=== PATIENT | male | born 1955 | race American Indian/Alaskan Native ===

== ENCOUNTER 2017-04-14 22:47 | Emergency (ER) | payer OTHER ==
[2017-04-14 22:53] VITALS: BP 138/93
--- NOTE | 2017-04-14 23:51 | XRay Report ---
FINAL REPORT PROCEDURE: XR TIBIA FIBULA 2V RT TECHNIQUE: RIGHT tibia and fibula radiographs, AP and lateral views. CPT 45912 History Right calf pain. COMPARISON: No prior studies are available for comparison. FINDINGS: Fracture (s) and/or Dislocation(s): None . Joint space(s): There is mild tricompartmental narrowing. Patellofemoral osteophytes. Calcaneal spur. Soft tissues: Normal . Bone mineralization: Normal . Foreign bodies: None . IMPRESSION: Mild degenerative changes without radiographic evidence of displaced fracture.
[2017-04-15] MEDS ORDERED: TYLENOL PO ONE (02:05)
--- NOTE | 2017-04-15 02:31 | Emergency Department Report ---
ED Lower Extremity HPI - General Chief Complaint: Extremity Injury, Lower Stated Complaint: PAIN RT LEG Time Seen by Provider: 04/15/17 01:43 Source: patient Mode of arrival: Ambulatory Limitations: No Limitations - History of Present Illness Initial Comments: 61-year-old male past medical history hypertension, diabetes presents with complaint of right calf pain. Patient states a few hours ago he was walking backward and stumbled off of a street curb. States that he felt immediate pain in the middle of his right calf as he hyperextended his right ankle/foot. Patient states he had difficulty walking afterward. Brought to the ER by his . Pain currently 0 out of 10 but patient states that when he tries to stand up and walk pain is severe in his right calf. Denies any other injuries denies any head injury denies any neck pain. Patient is fully lucid awake alert and oriented 3 did not sustain any lacerations or injuries to any other extremities chest abdomen or back during fall. Patient states that pain is activated by palpation of his right calf or walking. MD Complaint: leg injury (right calf) -: This evening Injury: Leg: Right (right calf) Type of Injury: hyperextension Place: street/outdoors Severity: moderate Severity scale (0 -10): 7 Improves With: cold therapy, immobilization Worsens With: weight bearing, movement, palpation Context: other (stumbled backward off of curb) Associated Symptoms: snap/pop sensation, swelling, able to partially bear weight - Related Data Previous Rx's Medication Instructions Recorded Last Taken Type Acetaminophen/Codeine [Tylenol 1 tab PO Q6H PRN #12 tab 04/15/17 Unknown Rx /Codeine # 3 tab] Ibuprofen [Motrin] 600 mg PO Q8H PRN #30 tablet 04/15/17 Unknown Rx Allergies Allergy/AdvReac Type Severity Reaction Status Date / Time No Known Allergies Allergy Unverified 04/14/17 22:53 ED Review of Systems ROS: Stated complaint: PAIN RT LEG Other details as noted in HPI Constitutional: denies: chills, fever Eyes: denies: eye pain, eye discharge, vision change ENT: denies: ear pain, throat pain Respiratory: denies: cough, shortness of breath, wheezing Cardiovascular: denies: chest pain, palpitations Endocrine: no symptoms reported Gastrointestinal: denies: abdominal pain, nausea, diarrhea Genitourinary: denies: urgency, dysuria Musculoskeletal: as per HPI (right calf pain for the last 4 hours). denies: back pain, joint swelling, arthralgia Skin: denies: rash, lesions Neurological: denies: headache, weakness, paresthesias Psychiatric: denies: anxiety, depression Hematological/Lymphatic: denies: easy bleeding, easy bruising ED Past Medical Hx - Past Medical History Previous Medical History?: Yes Hx Hypertension: Yes Hx Diabetes: Yes - Surgical History Past Surgical History?: No - Social History Smoking Status: Former Smoker Substance Use Type: None - Medications Home Medications: Home Medications Medication Instructions Recorded Confirmed Last Taken Type Acetaminophen/Codeine [Tylenol 1 tab PO Q6H PRN #12 tab 04/15/17 Unknown Rx /Codeine # 3 tab] Ibuprofen [Motrin] 600 mg PO Q8H PRN #30 tablet 04/15/17 Unknown Rx ED Physical Exam - General Limitations: No Limitations General appearance: alert, in no apparent distress - Head Head exam: Present: atraumatic, normocephalic - Eye Eye exam: Present: normal appearance, PERRL, EOMI - ENT ENT exam: Present: mucous membranes moist - Neck Neck exam: Present: normal inspection - Respiratory Respiratory exam: Present: normal lung sounds bilaterally. Absent: respiratory distress - Cardiovascular Cardiovascular Exam: Present: regular rate, normal rhythm. Absent: systolic murmur, diastolic murmur, rubs, gallop - GI/Abdominal GI/Abdominal exam: Present: soft, normal bowel sounds - Rectal Rectal exam: Present: deferred - Extremities Exam Extremities exam: Present: normal inspection - Expanded Lower Extremity Exam Right Hip exam: Present: normal inspection, full ROM Upper Leg exam: Present: normal inspection, full ROM Knee exam: Present: normal inspection, full ROM (right knee flexion and extension intact) Lower Leg exam: Present: normal inspection, tenderness (tenderness overlying the right calf with some associated swelling) Ankle exam: Present: normal inspection, full ROM Foot/Toe exam: Present: normal inspection, full ROM Neuro vascular tendon exam: Present: no vascular compromise (distal dorsalis pedis and posterior tibial pulses strong to palpation) Gait: Positive: antalgic 1 - Pain on palpation of this region - Back Exam Back exam: Present: normal inspection - Neurological Exam Neurological exam: Present: alert, oriented X3, CN II-XII intact, abnormal gait (antalgic gait secondary to pain) - Psychiatric Psychiatric exam: Present: normal affect, normal mood - Skin Skin exam: Present: warm, dry, intact, normal color. Absent: rash ED Course Vital Signs 04/14/17 04/14/17 04/15/17 22:50 22:53 02:29 Temperature 98.0 F 98 F Pulse Rate 105 H 101 H Respiratory 18 18 18 Rate Blood Pressure 138/93 138/93 O2 Sat by Pulse 98 98 Oximetry ED Lower Extremity MDM - Medical Decision Making A/P: Right calf muscle strain, possible calf muscle tear 1-pt given crutches, placed in posterior splint of right lower extremity. Nonweightbearing for a minimum of 4-6 weeks or until cleared by orthopedics 2-I emphasized the importance of follow-up with orthopedics to the patient. Patient stated that he would follow-up as soon as possible to mitigate any long- term injury or dysfunction to right lower extremity I explained to patient that I am concerned he may have complete or partial right calf muscle tear. Patient stated he understood my clinical concern, conversation witnessed by patient's at bedside and crepe maker Ms Mazariegos 3-Motrin when necessary, codeiene short course when necessary 4- case discussed with Dr. Tang before discharge Critical care attestation.: If time is entered above; I have spent that time in minutes in the direct care of this critically ill patient, excluding procedure time. ED Disposition Clinical Impression: Right calf pain Strain of calf muscle Qualifiers: Encounter type: initial encounter Laterality: right Qualified Code(s): S86.811A - Strain of other muscle(s) and tendon(s) at lower leg level, right leg , initial encounter Disposition: TO HOME OR SELFCARE Is pt being admited?: No Does the pt Need Aspirin: No Condition: Stable Instructions: Crutch Instructions (ED), Muscle Strain (ED), RICE Therapy (ED) Additional Instructions: pt advised to follow up with orthopedics SE[facility] as he may have sustained right calf muscle or tendon partial or complete tear Prescriptions: Acetaminophen/Codeine [Tylenol /Codeine # 3 tab] 1 tab PO Q6H PRN #12 tab PRN Reason: Pain Ibuprofen [Motrin] 600 mg PO Q8H PRN #30 tablet PRN Reason: Pain Referrals: PETER AMADOR MD [Staff Physician] - 3-5 Days [facility] [Provider Group] - 3-5 Days Forms: Work/School Release Form(ED) Time of Disposition: 02:31
== END 2017-04-15 02:59 | disposition home or self-care (01) ==
LOC: ED 22:47
DX: S86.811A Strain of other muscle(s) and tendon(s) at lower leg level, right leg, initial encounter (principal); I10 Essential (primary) hypertension; E11.9 Type 2 diabetes mellitus without complications; Z87.891 Personal history of nicotine dependence; W18.49XA Other slipping, tripping and stumbling without falling, initial encounter; Y93.89 Activity, other specified; Y92.89 Other specified places as the place of occurrence of the external cause; Y99.8 Other external cause status